=== PATIENT | female | born 1955 | race Caucasian/White ===

== ENCOUNTER 2017-10-16 21:51 | Inpatient (IN) | payer OTHER ==
[~2017-10-16] VITALS: Ht 160 cm; Wt 46.2 kg
[~2017-10-16 21:51] MED LIST: ASPIR 8181 M1 PO; ATORVASTATIN CA40 MG PO; CINNAMON500 MG PO; CLONAZEPAM0.5 MG PO; CLOPIDOGREL75 MG PO; DIGOX250 MCG PO; ESCITALOPRAM OX20 MG PO; FENOFIBRATE145 M1 PO; FISH OIL 1,2001 EAC3 PO; INSULIN PUMP MC; LOPRESSOR50 MG PO; NESINA25 MG PO; TRAMADOL HCL50 MG PO; VALSARTAN-HCTZ1 EAC2 PO
[2017-10-17] VITALS (9 sets, daily range): BP systolic 104–130; BP diastolic 49–68
[2017-10-18] VITALS (9 sets, daily range): BP systolic 109–152; BP diastolic 63–78
[2017-10-18] MEDS ORDERED: HYDROCODON-ACE1 EAC7 PO (09:05)
== END 2017-10-18 10:32 | disposition home or self-care (01) | DRG 27 ==
LOC: ENRESERV 21:51 → 2SOUTH 10-17 09:38 → ENRESERV 10-17 14:51 → 4WEST 10-17 15:51 → 2SOUTH 10-17 16:14 → 4WEST 10-18 10:32
PROVIDERS: Surgery
DX: I65.22 Occlusion and stenosis of left carotid artery (principal); Z79.82 Long term (current) use of aspirin; Z87.891 Personal history of nicotine dependence; Z90.710 Acquired absence of both cervix and uterus; Z90.49 Acquired absence of other specified parts of digestive tract; E11.9 Type 2 diabetes mellitus without complications; Z96.41 Presence of insulin pump (external) (internal); I10 Essential (primary) hypertension; Z85.528 Personal history of other malignant neoplasm of kidney; Z79.4 Long term (current) use of insulin
CPT/HCPCS: 82948; 87641; 93005; J0131; J0690; J1644; J1650; J2250; J2720; J2795; J3010; J7120; S0020